=== PATIENT | male | born 1970 ===

== ENCOUNTER 2018-08-09 18:06 | Emergency (ER) | payer SELFPAY ==
[~2018-08-09] VITALS: Ht 182.9 cm; Wt 79.4 kg
[2018-08-09] MEDS ORDERED: methylPREDNISolone 125 MG (Solu-MEDROL) VIAL IV STA (18:19)
[2018-08-09] MEDS ORDERED: DEXAMETHASONE 4 MG/ML SDV (DECADRON) ONE (18:20)
[2018-08-09] MEDS ORDERED: RT-ALBUTEROL/IPRATROPIUM 3 ML (DUONEB) VIAL ONE (18:20)
[2018-08-09 18:29] LABS: BASOPHILS % (AUTO) 0 % (0-10); EOSINOPHILS # (AUTO) 0.1 10^3/uL (0.0-0.3); EOSINOPHILS % (AUTO) 1 % (0-10); HEMATOCRIT 43 % (40-54); HEMOGLOBIN 15.9 G/DL (13.3-17.7); LYMPHOCYTES % (AUTO) 26 % (12-44); MEAN CORPUSCULAR HEMOGLOBIN 31 PG (25-34); MEAN CORPUSCULAR HGB CONC 37 G/DL (32-36); MEAN CORPUSCULAR VOLUME 85 FL (80-99); MONOCYTES % (AUTO) 13 % (0-12); NEUTROPHILS # (AUTO) 4.7 X 10^3 (1.8-7.8); NEUTROPHILS % (AUTO) 60 % (42-75); PLATELET COUNT 146 10^3/uL (130-400); RED BLOOD COUNT 5.09 10^6/uL (4.35-5.85); RED CELL DISTRIBUTION WIDTH 13.5 % (10.0-14.5); WHITE BLOOD COUNT 7.7 10^3/uL (4.3-11.0)
[2018-08-09] MEDS ORDERED: RT-ALBUTEROL/IPRATROPIUM 3 ML (DUONEB) VIAL INH ONE (18:30)
[2018-08-09] MEDS ORDERED: DEXAMETHASONE 4 MG/ML SDV (DECADRON) IH ONE (18:30)
[2018-08-09 18:43] LABS: PROTHROMBIN TIME PATIENT 13.5 SEC (12.2-14.7)
[2018-08-09 18:50] LABS: CARBON DIOXIDE 28 MMOL/L (21-32); CHLORIDE 102 MMOL/L (98-107); POTASSIUM 4.3 MMOL/L (3.6-5.0); SODIUM 140 MMOL/L (135-145)
[2018-08-09 18:51] LABS: ALANINE AMINOTRANSFERASE 16 U/L (0-55); ALBUMIN 4.2 GM/DL (3.2-4.5); ALKALINE PHOSPHATASE 84 U/L (40-136); BILIRUBIN,TOTAL 0.4 MG/DL (0.1-1.0); BUN/CREATININE RATIO 21; CALCIUM 9.6 MG/DL (8.5-10.1); GFR ESTIMATED > 60; GLUCOSE 112 MG/DL (70-105); MAGNESIUM 2.3 MG/DL (1.8-2.4); TOTAL PROTEIN 6.4 GM/DL (6.4-8.2)
[2018-08-09] MEDS ORDERED: LORazepam INJ 2 MG/ML (ATIVAN) VIAL IVP ONE (19:00)
[2018-08-09 19:05] LABS: BILIRUBIN,URINE NEGATIVE (NEGATIVE); CLARITY,URINE CLEAR; COLOR,URINE YELLOW; GLUCOSE, URINE (UA) NEGATIVE (NEGATIVE); KETONES,URINE NEGATIVE (NEGATIVE); LEUKOCYTE ESTERASE ,URINE 1+ (NEGATIVE); NITRITE,URINE NEGATIVE (NEGATIVE); PH,URINE 6 (5-9); PROTEIN,URINE NEGATIVE (NEGATIVE); UROBILINOGEN,URINE NORMAL (NORMAL)
[2018-08-09 19:10] LABS: TSH (THYROID ANALYZER) 1.23 UIU/ML (0.35-4.94)
[2018-08-09 19:11] LABS: BACTERIA,URINE TRACE /HPF; SQUAMOUS EPITHELIAL CELL,UR RARE /HPF
--- NOTE | 2018-08-09 19:13 | Diagnostic Imaging Report ---
INDICATION: Chest pain. EXAMINATION: Chest, 08/09/2018. COMPARISON: None. FINDINGS: Two portable frontal views of the chest. The lungs are hyperinflated. Heart and pulmonary vasculature appear unremarkable. The density towards the right lower lung is noted on both views. Although a nipple shadow is possible a nodule in the lung is not excluded at this time. Nonemergent followup with nipple markers recommended. If this does not represent the nipple, further imaging may be warranted. The remaining lungs unremarkable and clear with no effusions or infiltrates and no pneumothorax. IMPRESSION: 1. Nodular density in right lower lung, see above discussion. 2. Findings of COPD. Dictated by: Dictated on workstation # [id number]
[2018-08-09 19:16] LABS: AMPHETAMINE SCREEN, URINE POSITIVE (NEGATIVE); BARBITURATE SCREEN URINE NEGATIVE (NEGATIVE); BENZODIAZEPINES SCREEN URINE NEGATIVE (NEGATIVE); CANNABINOID SCREEN, URINE NEGATIVE (NEGATIVE); COCAINE SCREEN URINE NEGATIVE (NEGATIVE); METHADONE STAT NEGATIVE (NEGATIVE); METHAMPHETAMINE SCREEN URINE S NEGATIVE (NEGATIVE); OPIATE SCREEN URINE NEGATIVE (NEGATIVE); OXYCODONE STAT NEGATIVE (NEGATIVE); PROPOXYPHENE STAT NEGATIVE (NEGATIVE); TRICYCLIC ANTIDEPRESSANTS SCRE NEGATIVE (NEGATIVE)
[2018-08-09] MEDS ORDERED: DOXY100C42 PO (19:26)
[2018-08-09] MEDS ORDERED: PRD10T PO (19:26)
--- NOTE | 2018-08-09 19:26 | ED Respiratory ---
General Chief Complaint: Respiratory Problems Stated Complaint: SOB/COPD Nursing Triage Note: [place] Brought by EMS receiving O2 NC. audible wheezing noted with pulling of neck but will become anxious and symptoms will become worse. Will state he is SOB but will answer his phone and talk for extended periods of time. SOA will increase and he states that he thinks it is anxiety related Allergies and Home Medications Allergies Coded Allergies: No Known Drug Allergies (Unverified , 08/09/18) Home Medications Doxycycline Monohydrate 100 Mg Capsule, 100 MG PO BID Prescribed by: KEVIN GAINES on 08/09/181925 Prednisone 10 Mg Tab, 40 MG PO DAILY Prescribed by: KEVIN GAINES on 08/09/181925 Past Ddnjqsa-Qrksls-Uunlds Hx Patient Social History Alcohol Use: Denies Use Recreational Drug Use: Yes (last took Meth 08/08 per pt) Drug of Choice: Meth, THC, Cocaine (IV) Smoking Status: Current Everyday Smoker Type Used: Cigarettes 2nd Hand Smoke Exposure: No Recent Foreign Travel: No Contact w/Someone Who Travel: No Recent Infectious Disease Expo: No Recent Hopitalizations: No Physical Abuse: No Sexual Abuse: No Mistreated: No Fear: No Immunizations Up To Date Tetanus Booster (TDap): Unknown Seasonal Allergies Seasonal Allergies: No Past Medical History Surgeries: No Respiratory: Yes COPD Cardiac: Yes Peripheral Vascular Neurological: Yes Neuropathy, Seizure Disorder, Traumatic Brain Injury Genitourinary: No Gastrointestinal: No Musculoskeletal: Yes Contracture Endocrine: No HEENT: No Cancer: Yes ("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 oz. [id number]; BMI Method:Stated Focused Exam Lactate Level 08/09/18 18:20: Lactic Acid Level 1.13 Lactic Acid Level Laboratory Tests Test 08/09/18 18:20 Lactic Acid Level 1.13 MMOL/L (0.50-2.00) Progress/Results/Core Measures Suspected Sepsis Recent Fever Within 48 Hours: No Infection Criteria Present: None New/Unexplained Altered Menta: No Sepsis Screen: No Definite Risk SIRS Temperature:97.2 Pulse: 118 Respiratory Rate: 26 Laboratory Tests 08/09/18 18:20: White Blood Count 7.7 Blood Pressure 127 /96 Mean: 106 08/09/18 18:20: Lactic Acid Level 1.13 Laboratory Tests 08/09/18 18:20: Creatinine 0.80, INR Comment 1.0, Platelet Count 146, Total Bilirubin 0.4 Results/Orders Lab Results Laboratory Tests Test 08/09/18 18:20 08/09/18 18:53 Range/Units White Blood Count 7.7 4.3-11.0 10^3/uL Red Blood Count 5.09 4.35-5.85 10^6/uL Hemoglobin 15.9 13.3-17.7 G/DL Hematocrit 43 40-54 % Mean Corpuscular Volume 85 80-99 FL Mean Corpuscular Hemoglobin 31 25-34 PG Mean Corpuscular Hemoglobin Concent 37 H 32-36 G/DL Red Cell Distribution Width 13.5 10.0-14.5 % Platelet Count 146 130-400 10^3/uL Mean Platelet Volume 8.0 7.4-10.4 FL Neutrophils (%) (Auto) 60 42-75 % Lymphocytes (%) (Auto) 26 12-44 % Monocytes (%) (Auto) 13 H 0-12 % Eosinophils (%) (Auto) 1 0-10 % Basophils (%) (Auto) 0 0-10 % Neutrophils # (Auto) 4.7 1.8-7.8 X 10^3 Lymphocytes # (Auto) 2.0 1.0-4.0 X 10^3 Monocytes # (Auto) 1.0 0.0-1.0 X 10^3 Eosinophils # (Auto) 0.1 0.0-0.3 10^3/uL Basophils # (Auto) 0.0 0.0-0.1 10^3/uL Prothrombin Time 13.5 12.2-14.7 SEC INR Comment 1.0 0.8-1.4 Activated Partial Thromboplast Time 31 24-35 SEC Sodium Level 140 135-145 MMOL/L Potassium Level 4.3 3.6-5.0 MMOL/L Chloride Level 102 98-107 MMOL/L Carbon Dioxide Level 28 21-32 MMOL/L Anion Gap 10 5-14 MMOL/L Blood Urea Nitrogen 17 7-18 MG/DL Creatinine 0.80 0.60-1.30 MG/DL Estimat Glomerular Filtration Rate > 60 BUN/Creatinine Ratio 21 Glucose Level 112 H 70-105 MG/DL Lactic Acid Level 1.13 0.50-2.00 MMOL/L Calcium Level 9.6 8.5-10.1 MG/DL Corrected Calcium 9.4 8.5-10.1 MG/DL Magnesium Level 2.3 1.8-2.4 MG/DL Total Bilirubin 0.4 0.1-1.0 MG/DL Aspartate Amino Transf (AST/SGOT) 22 5-34 U/L Alanine Aminotransferase (ALT/SGPT) 16 0-55 U/L Alkaline Phosphatase 84 40-136 U/L Troponin I < 0.30 <0.30 NG/ML B-Type Natriuretic Peptide < 10.0 <100.0 PG/ML Total Protein 6.4 6.4-8.2 GM/DL Albumin 4.2 3.2-4.5 GM/DL TSH [facility] Testing 1.23 0.35-4.94 UIU/ML Serum Alcohol < 10 <10 MG/DL Urine Color YELLOW Urine Clarity CLEAR Urine pH 6 5-9 Urine Specific [place] 1.025 H 1.016-1.022 Urine Protein NEGATIVE NEGATIVE Urine Glucose (UA) NEGATIVE NEGATIVE Urine Ketones NEGATIVE NEGATIVE Urine Nitrite NEGATIVE NEGATIVE Urine Bilirubin NEGATIVE NEGATIVE Urine Urobilinogen NORMAL NORMAL MG/DL Urine Leukocyte Esterase 1+ H NEGATIVE Urine RBC (Auto) 1+ H NEGATIVE Urine RBC NONE /HPF Urine WBC 2-5 /HPF Urine Squamous Epithelial Cells RARE /HPF Urine Crystals NONE /LPF Urine Bacteria TRACE /HPF Urine Casts NONE /LPF Urine Mucus NEGATIVE /LPF Urine Culture Indicated NO Urine Opiates Screen NEGATIVE NEGATIVE Urine Oxycodone Screen NEGATIVE NEGATIVE Urine Methadone Screen NEGATIVE NEGATIVE Urine Propoxyphene Screen NEGATIVE NEGATIVE Urine Barbiturates Screen NEGATIVE NEGATIVE Ur Tricyclic Antidepressants Screen NEGATIVE NEGATIVE Urine Phencyclidine Screen NEGATIVE NEGATIVE Urine Amphetamines Screen POSITIVE H NEGATIVE Urine Methamphetamines Screen NEGATIVE NEGATIVE Urine Benzodiazepines Screen NEGATIVE NEGATIVE Urine Cocaine Screen NEGATIVE NEGATIVE Urine Cannabinoids Screen NEGATIVE NEGATIVE Micro Results Microbiology 08/09/18 Influenza Types A,B Antigen (BELLA) - Final, Complete My Orders Orders - KEVIN GAINES DO Saline Lock/Iv-Start (08/09/18 18:19) Ekg Tracing (08/09/18 18:19) O2 (08/09/18 18:) Monitor-Rhythm Ecg Trace Only (08/09/18 18:) Alcohol (08/09/18 18:) BNP (08/09/18 18:) Cbc With Automated Diff (08/09/18 18:) Comprehensive Metabolic Panel (08/09/18 18) Drug Screen Stat (Urine) (08/09/18 18:) Lactic Acid Analyzer (08/09/18:) Magnesium (08/09/18:) Protime With Inr (08/09/18:) Partial Thromboplastin Time (08/09/18 18:) Thyroid Analyzer (08/09/18) Troponin I (08/09/18 18:) Ua Culture If Indicated (08/09/18 18:) Blood Culture (08/09/18 18:) Influenza A And B Antigens (08/09/18 18:) Chest 1 View, Ap/Pa Only (08/09/18 18:19) Methylprednisolone Sod Succ (Solu-Medrol (08/09/18 18:19) Albuterol/Ipra Inhalation Soln (Duoneb I (08/09/18 18:30) Dexamethasone Injection (Decadron Inject (08/09/18 18:30) Rt Request For Service (08/09/18 18:19) Svn Small Volume Nebulizer (08/09/18 18:19) Dexamethasone Injection (Decadron Inject (08/09/18 18:20) Albuterol/Ipra Inhalation Soln (Duoneb I (08/09/18 18:20) Lorazepam Injection (Ativan Injection) (08/09/18 19:00) Ceftriaxone For Iv Use (Rocephin For I (08/09/18 19:30) Medications Given in ED Current Medications Medications Dose Ordered Sig/Levon Route Start Time Stop Time Status Last Admin Dose Admin Albuterol/ Ipratropium 3 ml ONCE ONCE INH 08/09/18 18:30 18 18:31 DC 08/09/18 18:27 3 ML Dexamethasone Sodium Phosphate 20 mg ONCE ONCE IH 08/09/18 18:30 08/09/18 18:31 DC 08/09/18 18:27 20 MG Lorazepam 1 mg ONCE ONCE IVP 08/09/18 19:00 08/09/18 19:01 DC 08/09/18 19:05 1 MG Vital Signs/I&O 08/09/18 08/09/18 08/09/18 08/09/18 18:06 18:06 18:28 19:00 Temp 97.2 Pulse 118 Resp 26 B/P (MAP) 127/96 (106) Pulse Ox 100 100 100 100 O2 Delivery Nasal Cannula Nasal Cannula Vapotherm O2 Flow Rate 2.00 2.00 2.00 20.00 FiO2 100 30 Capillary Refill : Less Than 3 Seconds Blood Pressure Mean: 106 Diagnostic Imaging Comments CXR--COPD, RLL NODULE, NO ACUTE PROCESS, PER RADIOLOGIST REPORT @ 1921 Reviewed: Reviewed by Me Departure Impression Primary Impression: COPD (chronic obstructive pulmonary disease) Additional Impressions: Illicit drug use Anxiety hyperventilation RLL LUNG NODULE Disposition: HOME, SELF-CARE Condition: Improved Departure-Patient Inst. Referrals: UNKNOWN (PCP/Family) Primary Care Physician Patient Instructions: COPD Including Emphysema (DC), Drug Abuse and Drug Addiction (DC), Hyperventilation, Methamphetamine, Single Pulmonary Nodule Add. Discharge Instructions: NO SMOKING NO DRUGS FOLLOW UP WITH YOUR REGULAR DR IN 2-3 DAYS FOR FURTHER CARE RETURN TO ER IF WORSE All discharge instructions reviewed with patient and/or family. Voiced understanding. Scripts Albuterol Sulfate (PROAIR HFA) 1 Puff Puff 2 PUFF IH Q4H for BREATHING, #1 GM Prov: KEVIN GAINES DO 08/09/18 Prednisone (Prednisone) 10 Mg Tab 40 MG PO DAILY, #12 TAB Prov: KEVIN GAINES DO 08/09/18 Doxycycline Monohydrate (Doxycycline Monohydrate) 100 Mg Capsule 100 MG PO BID, #20 CAP Prov: KEVIN GAINES DO 08/09/18 KEVIN GAINES DO Aug 09, 2018 19:26
[2018-08-09] MEDS ORDERED: cefTRIAXone FOR IV USE 1,000 MG in NS (IVPB) 50 ML IV ONE (19:30)
[2018-08-09] MEDS ORDERED: RT-ALBUINH IH (19:38)
[2018-08-09] MEDS ORDERED: AMMONIA INHALATION 0.33 ML AMP ONE (22:57)
[2018-08-09 23:15] VITALS: BP 0/0
== END 2018-08-09 23:17 | disposition home or self-care (01) ==
LOC: ER 18:07
DX: J44.9 Chronic obstructive pulmonary disease, unspecified (principal); F41.9 Anxiety disorder, unspecified; R06.4 Hyperventilation; R91.1 Solitary pulmonary nodule; G40.909 Epilepsy, unspecified, not intractable, without status epilepticus; F12.10 Cannabis abuse, uncomplicated; F17.210 Nicotine dependence, cigarettes, uncomplicated; F14.10 Cocaine abuse, uncomplicated; Z79.52 Long term (current) use of systemic steroids; Z87.820 Personal history of traumatic brain injury; Z94.81 Bone marrow transplant status
CPT/HCPCS: 36415; 71045; 80053; 80306; 80320; 81000; 83605; 83735; 83880; 84443; 84484; 85025; 85610; 85730; 87040; 87804; 93041; 94640